=== PATIENT | male | born 1960 | race African-American/Black ===

== ENCOUNTER 2018-03-11 05:42 | Emergency (ER) | payer SELFPAY ==
[~2018-03-11] VITALS: Ht 185.4 cm; Wt 88.0 kg
[~2018-03-11 05:42] MED LIST: Z.0.NO CURRENT MEDS; Z.0.UNKNOWN
[2018-03-11 05:46] VITALS: BP 143/86; PULSE 76; RESP 18; TEMP 98.1; O2SAT 99
--- NOTE | 2018-03-11 06:04 | PD ---
HPI Chief Complaint: Pain: Acute or Chronic Time Seen by Provider: 05:52 Travel History International Travel<30 days: No Contact w/Intl Traveler<30days: No Traveled to known affect area: No History of Present Illness HPI 58-year-old black male presents emergency department with complaints of left lower back pain with sciatica. He has had this on and off now for years. Over the last 3 or 4 days the pain is gotten worse. He has been taking over-the- counter medication without relief. Pain is moderate. Worse with bending and movement. Some relief with sitting and remaining still. He had denies any acute bowel or bladder changes. 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 Nontoxic appearing. HEAD: Normocephalic, atraumatic. EYES: Pupils equal round and reactive. Extraocular motions intact. No scleral icterus. No injection or drainage. ENT: TMs clear without erythema. The external auditory canals clear. Nose: clear . Posterior pharynx is pink and moist. No tonsillar edema or exudate. Uvula midline. Airway patent. NECK: Trachea midline.Supple, nontender, moves head freely. No central bony tenderness or spasm. CARDIOVASCULAR: Regular rate and rhythm without murmurs, gallops, or rubs. RESPIRATORY: Clear to auscultation. Breath sounds equal bilaterally. No wheezes , rales, or rhonchi. GASTROINTESTINAL: Abdomen soft, non-tender, nondistended. No hepato-splenomegaly , or palpable masses. No guarding. EXTREMITIES: No clubbing, cyanosis, or edema. No joint tenderness, effusion, or edema noted. BACK: Mild lower lumbar tenderness without deformity or crepitance. No flank tenderness. Able to heel and toe stand. Flex forward to 90. No saddle anesthesia Data Data Last Documented VS Vital Signs Date Time Temp Pulse Resp B/P (MAP) Pulse Ox O2 Delivery O2 Flow Rate FiO2 03/11/18 05:46 98.1 76 18 143/86 (105) 99 MDM Medical Decision Making Medical Screen Exam Complete: Yes Emergency Medical Condition: No Medical Record Reviewed: Yes Differential Diagnosis MDM: High Differential diagnoses: AAA,Fracture, sprain, strain, HNP, nerve or vascular injury, epidural abscess, pilonidal cyst, pyelonephritis, UTI, nephrolithiasis, ureterolithiasis Narrative Course A medical screening exam was performed: At the time of evaluation the presenting medical condition was determined not to be of an emergent nature. The patient was given the option of receiving additional care, but declined. Patient was given options for additional community resources from which to obtain care. The Patient Has Been advised to seek medical attention for their presenting complaint. The patient has been advised to return to the ER at any time if an emergent condition develops. Diagnosis Primary Impression: Encounter for medical screening examination Condition: Kermit Hamm Mar 11, 2018 06:04
== END 2018-03-11 06:47 | disposition left against medical advice (07) ==
LOC: NEPD 05:42
DX: M54.5 Low back pain (principal)
CPT/HCPCS: 99281